=== PATIENT | female | born 1970 | race Caucasian/White ===

== ENCOUNTER 2017-01-04 16:00 | Inpatient (IN) | payer OTHER ==
[2017-01-04] MEDS ORDERED: Pantoprazole IV* 40 MG IV ONE (17:39)
[2017-01-04] MEDS ORDERED: Ondansetron INJ* 2 MG/ML VIAL IV ONE (17:39)
[2017-01-04] MEDS ORDERED: NS 0.9% 1000 ML* 2,000 ML IV ONE (17:40)
[2017-01-04] MEDS ORDERED: Morphine INJ* 4 MG/ML 1 ML CARPUJECT IV ONE ×2 (17:40→19:02)
[2017-01-04 17:56] LABS: Hematocrit 43 % (35-47); Hemoglobin 14.4 g/dl (12.0-16.0); Mean Corpuscular HGB Conc 34 g/dl (31-36); Mean Corpuscular Hemoglobin 31 pg (27-31); Mean Corpuscular Volume 93 fL (80-97); Mean Platelet Volume 7 um3 (7.4-10.4); Red Blood Count 4.57 10^6/ul (4.0-5.4); Red Cell Distribution Width 13 % (10.5-15); White Blood Count 14.3 10^3/ul (3.5-10.8)
[2017-01-04 18:09] LABS: Albumin 4.3 g/dL (3.2-5.2); C Reactive Protein 1.29 mg/L (< 5.00); Calcium 9.5 mg/dL (8.6-10.3); EGFR African American 108.7 (>60); EGFR Non-African American 84.5 (>60); Globulin 3.4 g/dL (2-4); Potassium 3.6 mmol/L (3.5-5.0); Total Bilirubin 0.4 mg/dL (0.2-1.0); Total Protein 7.7 g/dL (6.4-8.9)
[2017-01-04 19:21] LABS: Urine Bilirubin Negative (Negative); Urine Glucose Negative (Negative); Urine Nitrite Negative (Negative)
[2017-01-04] MEDS ORDERED: Iohexol 300* (CONTRAST) 10 ML SDV IV ONE (19:21)
--- NOTE | 2017-01-04 20:35 | RAD ---
CLINICAL HISTORY: Epigastric pain, left lower quadrant pain COMPARISON: None TECHNIQUE: Multiple contiguous axial CT scans were obtained of the abdomen and pelvis after the administration of intravenous contrast. Coronal and sagittal multiplanar reformations are submitted for review. Oral contrast was administered. Delayed images were obtained through the abdomen FINDINGS: Evaluation is somewhat limited by metallic streak artifact from spinal hardware. LUNG BASES: There is a large hiatal hernia with impression upon the left lung base LIVER: The liver is normal in shape, size, contour, and attenuation. BILE DUCTS: There is no intrahepatic or extrahepatic biliary dilatation. GALLBLADDER: The gallbladder is normal, without pericholecystic inflammatory change. PANCREAS: The pancreas is normal, without mass or ductal dilatation. SPLEEN: Normal in size and appearance. UPPER GI TRACT: Evaluation of the gastrointestinal tract is limited by incomplete gastric distention. There is a large para esophageal hiatal hernia. SMALL BOWEL AND MESENTERY: There is diffuse edema of the small bowel mesentery. There is mild distention of the small bowel. There is transition to decompressed small bowel within the right hemiabdomen. COLON: There are multiple diverticula of the sigmoid colon. There is no pericolonic inflammatory change. ADRENALS: Normal bilaterally. KIDNEYS: The kidneys are normal in shape, size, contour, and axis. There is no hydronephrosis or nephrolithiasis. BLADDER: The bladder is smooth in contour. PELVIC ORGANS: The uterus and adnexa are grossly normal for technique. AORTA: The aorta is normal. IVC: Unremarkable LYMPH NODES: There is no lymphadenopathy by size criteria. ABDOMINAL WALL: There is no evidence for abdominal wall hernia. BONES AND SOFT TISSUES: The patient is status post spinal stabilization surgery. OTHER: There is a small amount of ascites. IMPRESSION: 1. THERE IS DIFFUSE EDEMA OF THE SMALL BOWEL MESENTERY. THERE IS MILD DISTENTION OF THE SMALL BOWEL. THERE IS A TRANSITION TO RELATIVELY DECOMPRESSED SMALL BOWEL WITHIN THE RIGHT HEMIABDOMEN. THIS MAY INDICATE EARLY OR PARTIAL OBSTRUCTION. RECOMMEND ATTENTION ON FOLLOW-UP IMAGING. 2. LARGE PARAESOPHAGEAL HIATAL HERNIA. 3. SMALL AMOUNT OF ASCITES. 4. DIVERTICULOSIS
--- NOTE | 2017-01-04 22:47 | ED ---
Sacha Thompson Adam, scribed for Rickie Arthur MD on 01/04/17 at 1742 . Abdominal Pain/Female - HPI Summary HPI Summary: Pt is a 46 year old female presenting with abdominal pain. She states that the pain set on suddenly at 13:00, shortly after she ate lunch. Her lunch consisted of egg salad, serge, and green pepper. She also ate breakfast this morning. The pain is localized around the epigastrium and the LLQ. It does not radiate to her back or anywhere else. The pain has been constant but it fluctuates in waves of severity and has been generally getting worse since 13:00. She states that she called her PCP at 14:00 and made an appt for tomorrow but then decided to come to the ED because she could not tolerate the pain anymore. She also c/o nausea and belching but has been unable to vomit. She feels hot as well. Her last BM was this morning. Pt has taken ibuprofen and Pepto-Bismol today. Surgical Hx of and hernia repair. She denies any Hx of ulcers or cholecystectomy. - History of Current Complaint Chief Complaint: EDAbdPain Stated Complaint: ABD PAIN,NAUSEA Time Seen by Provider: 01/04/17 17:32 Hx Obtained From: Patient Onset/Duration: Sudden Onset, Lasting Hours, Still Present Timing: Constant - Fluctuating in waves of severity Severity Initially: Moderate Severity Currently: Moderate Pain Intensity: 10 Pain Scale Used: 0-10 Numeric Location: Diffuse, Discrete At: LLQ, Epigastric Radiates: No Aggravating Factor(s): Nothing Alleviating Factor(s): Nothing Associated Signs and Symptoms: Positive: Nausea Allergies/Adverse Reactions: Allergies Allergy/AdvReac Type Severity Reaction Status Date / Time No Known Allergies Allergy Verified 03/18/13 08:28 PMH/Surg Hx/FS Hx/Imm Hx Endocrine/Hematology History: Reports: Hx Thyroid Disease - HYPOTHYROID, Hx Anemia - IRON EVERY OTHER DAY Musculoskeletal History: Reports: Hx Arthritis - KNEES AND RIGHT BID TOE, Other Musculoskeletal History - CONGENTIAL RIGHT HIP REPAIR AT 2 YEARS OF AGE Sensory History: Denies: Hx Contacts or Glasses, Hx Hearing Aid Opthamlomology History: Denies: Hx Contacts or Glasses Neurological History: Reports: Hx Migraine - Surgical History Surgery Procedure, Year, and Place: 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 SCOLIOSIS-1981- [facility] [place]. [id number]-[facility] [place]. 1999-HERNIA REPAIR. 2011-MELANOMA REMOVED- [facility]. 1990-D&C- WITH TRANSFUSION- [place], [place] Hx Anesthesia Reactions: No Infectious Disease History: No Infectious Disease History: Denies: Traveled Outside the [place] in Last 30 Days - Family History Known Family History: Positive: Other - No Hx of breast CA - Social History Occupation: Employed Full-time Lives: With Family - Alcohol Use: None Hx Substance Use: No Substance Use Type: Reports: None Review of Systems Positive: Other - Feeling hot Positive: Abdominal Pain, Nausea. Negative: Vomiting All Other Systems Reviewed And Are Negative: Yes Physical Exam - Summary Physical Exam Summary: The patient is uncomfortable. The skin is pale. Good skin turgor. HEENT: The head is normocephalic and atraumatic. The pupils are equal and reactive. The conjunctivae are clear and without drainage. Nares are patent and without drainage. Mouth reveals dry mucous membranes and the throat is without erythema and exudate. The external ears are intact. The ear canals are patent and without drainage. The tympanic membranes are intact. Neck is supple with full range of motion and non-tender. There are no carotid bruits. There is no neck vein distension. Respiratory: Chest is non-tender. Lungs are clear to auscultation and breath sounds are symmetrical and equal. Cardiovascular: Heart is regular rate and rhythm. There is no murmur or rub auscultated. There is no peripheral edema and pulses are symmetrical and equal. Abdomen: Tenderness in the epigastrium and LLQ. No CVA tenderness. Musculoskeletal: There is no back pain noted. Extremities are non-tender with full range of motion. There is good capillary refill. There is no peripheral edema or calf tenderness elicited. Neurological: Patient is alert and oriented to person, place and time. The patient has symmetrical motor strength in all four extremities. Cranial nerves are grossly intact. Deep tendon reflexes are symmetrical and equal in all four extremities. Psychiatric: The patient has an appropriate affect and does not exhibit any anxiety or depression. Triage Information Reviewed: Yes Vital Signs On Initial Exam: Initial Vitals Temp Pulse Resp BP Pulse Ox 97.2 F 87 24 132/104 98 01/04/17 16:34 01/04/17 16:34 01/04/17 16:34 01/04/17 16:34 01/04/17 16:34 Vital Signs Reviewed: Yes Diagnostics - Vital Signs Vital Signs Temp Pulse Resp BP Pulse Ox 01/04/17 17:13 99.5 F 105 32 119/88 100 01/04/17 16:34 97.2 F 87 24 132/104 98 - Laboratory Lab Results: Lab Results 01/04/17 01/04/17 01/04/17 Range/Units 17:30 17:30 17:30 WBC 14.3 H (3.5-10.8) 10^3/ul RBC 4.57 (4.0-5.4) 10^6/ul Hgb 14.4 (12.0-16.0) g/dl Hct 43 (35-47) % MCV 93 (80-97) fL MCH 31 (27-31) pg MCHC 34 (31-36) g/dl RDW 13 (10.5-15) % Plt Count 379 (150-450) 10^3/ul MPV 7 L (7.4-10.4) um3 Neut % (Auto) 84.1 H (38-83) % Lymph % (Auto) 11.1 L (25-47) % [place] % (Auto) 3.9 (1-9) % Eos % (Auto) 0.4 (0-6) % Baso % (Auto) 0.5 (0-2) % Absolute Neuts (auto) 12.0 H (1.5-7.7) 10^3/ul Absolute Lymphs (auto) 1.6 (1.0-4.8) 10^3/ul Absolute Monos (auto) 0.6 (0-0.8) 10^3/ul Absolute Eos (auto) 0.1 (0-0.6) 10^3/ul Absolute Basos (auto) 0.1 (0-0.2) 10^3/ul Absolute Nucleated RBC 0 10^3/ul Nucleated RBC % 0 Sodium 132 L (133-145) mmol/L Potassium 3.6 (3.5-5.0) mmol/L Chloride 101 (101-111) mmol/L Carbon Dioxide 16 L (22-32) mmol/L Anion Gap 15 H (2-11) mmol/L BUN 20 (6-24) mg/dL Creatinine 0.74 (0.51-0.95) mg/dL Est GFR ( Amer) 108.7 (>60) Est GFR (Non-Af Amer) 84.5 (>60) BUN/Creatinine Ratio 27.0 H (8-20) Glucose 143 H (70-100) mg/dL Lactic Acid 2.7 H* (0.5-2.0) mmol/L Calcium 9.5 (8.6-10.3) mg/dL Total Bilirubin 0.40 (0.2-1.0) mg/dL AST 20 (13-39) U/L ALT 21 (7-52) U/L Alkaline Phosphatase 40 (34-104) U/L C-Reactive Protein 1.29 (< 5.00) mg/L Total Protein 7.7 (6.4-8.9) g/dL Albumin 4.3 (3.2-5.2) g/dL Globulin 3.4 (2-4) g/dL Albumin/Globulin Ratio 1.3 (1-3) Amylase 27 L (29-103) U/L Lipase 18 (11.0-82.0) U/L Urine Color Urine Appearance Urine pH (5-9) Ur Specific Strang (1.010-1.030) Urine Protein (Negative) Urine Ketones (Negative) Urine Blood (Negative) Urine Nitrate (Negative) Urine Bilirubin (Negative) Urine Urobilinogen (Negative) Ur Leukocyte Esterase (Negative) Urine Glucose (Negative) Urine Ascorbic Acid (Negative) 01/04/17 Range/Units 19:07 WBC (3.5-10.8) 10^3/ul RBC (4.0-5.4) 10^6/ul Hgb (12.0-16.0) g/dl Hct (35-47) % MCV (80-97) fL MCH (27-31) pg MCHC (31-36) g/dl RDW (10.5-15) % Plt Count (150-450) 10^3/ul MPV (7.4-10.4) um3 Neut % (Auto) (38-83) % Lymph % (Auto) (25-47) % [place] % (Auto) (1-9) % Eos % (Auto) (0-6) % Baso % (Auto) (0-2) % Absolute Neuts (auto) (1.5-7.7) 10^3/ul Absolute Lymphs (auto) (1.0-4.8) 10^3/ul Absolute Monos (auto) (0-0.8) 10^3/ul Absolute Eos (auto) (0-0.6) 10^3/ul Absolute Basos (auto) (0-0.2) 10^3/ul Absolute Nucleated RBC 10^3/ul Nucleated RBC % Sodium (133-145) mmol/L Potassium (3.5-5.0) mmol/L Chloride (101-111) mmol/L Carbon Dioxide (22-32) mmol/L Anion Gap (2-11) mmol/L BUN (6-24) mg/dL Creatinine (0.51-0.95) mg/dL Est GFR ( Amer) (>60) Est GFR (Non-Af Amer) (>60) BUN/Creatinine Ratio (8-20) Glucose (70-100) mg/dL Lactic Acid (0.5-2.0) mmol/L Calcium (8.6-10.3) mg/dL Total Bilirubin (0.2-1.0) mg/dL AST (13-39) U/L ALT (7-52) U/L Alkaline Phosphatase (34-104) U/L C-Reactive Protein (< 5.00) mg/L Total Protein (6.4-8.9) g/dL Albumin (3.2-5.2) g/dL Globulin (2-4) g/dL Albumin/Globulin Ratio (1-3) Amylase (29-103) U/L Lipase (11.0-82.0) U/L Urine Color Yellow Urine Appearance Cloudy Urine pH 5.0 (5-9) Ur Specific Strang 1.021 (1.010-1.030) Urine Protein Negative (Negative) Urine Ketones 2+ H (Negative) Urine Blood Negative (Negative) Urine Nitrate Negative (Negative) Urine Bilirubin Negative (Negative) Urine Urobilinogen Negative (Negative) Ur Leukocyte Esterase Negative (Negative) Urine Glucose Negative (Negative) Urine Ascorbic Acid * H (Negative) Result Diagrams: 01/04/17 17:30 01/04/17 17:30 Lab Statement: Any lab studies that have been ordered have been reviewed, and results considered in the medical decision making process. - CT A/P CT Interpretation Completed By: Radiologist - IMPRESSION: 1. THERE IS DIFFUSE EDEMA OF THE SMALL BOWEL MESENTERY. THERE IS MILD DISTENTION OF THE SMALL BOWEL. THERE IS A TRANSITION TO RELATIVELY DECOMPRESSED SMALL BOWEL WITHIN THE RIGHT HEMIABDOMEN. THIS MAY INDICATE EARLY OR PARTIAL OBSTRUCTION. RECOMMEND ATTENTION ON FOLLOW-UP IMAGING. 2. LARGE PARAESOPHAGEAL HIATAL HERNIA. 3. SMALL AMOUNT OF ASCITES. 4. DIVERTICULOSIS - Additional Comments Diagnostic Additional Comments: Lactic Acid - 2.7 Re-Evaluation - Re-Evaluation First Eval Re-Evaluation Time: 18:55 - Patient c/o more pain. Change: Worse Abdominal Pain Fem Course/Dx - Course Course Of Treatment: case discussed with Dr. Phipps. he reviewed the CT and will admit the patient. - Diagnoses Differential Diagnosis: Positive: Bowel Obstruction, Diverticulitis, Gall Bladder Disease, Pancreatitis, Other - hiatal hernia, perforated viscus Provider Diagnoses: Small bowel obstruction, Large hiatal hernia Discharge - Discharge Plan Condition: Stable Disposition: ADMITTED TO [facility] The documentation as recorded by the Sacha brower Adam accurately reflects the service I personally performed and the decisions made by , Rickie Arthur MD.
[2017-01-04] MEDS: HYDROmorphone INJ* 1 MG/ML CARPUJECT SYRINGE IV PRN (23:03)
[2017-01-05] MEDS: HYDROmorphone INJ* 1 MG/ML CARPUJECT SYRINGE IV PRN ×6 (01:54→20:43)
[2017-01-05] MEDS: Ondansetron INJ* 2 MG/ML VIAL IV PRN ×2 (05:18→20:42)
[2017-01-05 07:04] LABS: Hematocrit 41 % (35-47); Hemoglobin 13.8 g/dl (12.0-16.0); Mean Corpuscular HGB Conc 34 g/dl (31-36); Mean Corpuscular Hemoglobin 32 pg (27-31); Mean Corpuscular Volume 94 fL (80-97); Mean Platelet Volume 7 um3 (7.4-10.4); Red Blood Count 4.32 10^6/ul (4.0-5.4); Red Cell Distribution Width 13 % (10.5-15); White Blood Count 10.1 10^3/ul (3.5-10.8)
[2017-01-05 07:30] LABS: Albumin 3.8 g/dL (3.2-5.2); BUN/Creatinine Ratio 15.9 (8-20); C Reactive Protein 5.33 mg/L (< 5.00); Calcium 8.9 mg/dL (8.6-10.3); EGFR African American 130.8 (>60); EGFR Non-African American 101.7 (>60); Globulin 3.1 g/dL (2-4); Potassium 4.2 mmol/L (3.5-5.0); Total Bilirubin 0.5 mg/dL (0.2-1.0); Total Protein 6.9 g/dL (6.4-8.9)
--- NOTE | 2017-01-05 08:17 | RAD ---
Indication: Small bowel obstruction Flat and upright views of the abdomen demonstrates dilated stomach. Moderately dilated loops of small bowel are noted in the left upper quadrant. IMPRESSION: Persistent contrast is noted in a dilated stomach with moderately dilated loops of small bowel.
--- NOTE | 2017-01-05 13:23 | HP ---
CC: Dr. Phipps at [facility]; Lane Rios MD ADMISSION HISTORY AND PHYSICAL: DATE OF ADMISSION: 01/05/17 This patient is seen on the Short-Stay Surgical Unit at [address] DATE OF SERVICE: 01/05/17. TIME OF SERVICE: The patient was seen at 9 am today. ATTENDING SURGEON: Hernandez Phipps MD (dictated by Fariha Guzman NP) CHIEF COMPLAINT: Worsening abdominal pain. HISTORY OF PRESENT ILLNESS: The patient is a 46-year-old female who presented to the emergency room during the night; she states that at 1 p.m. yesterday, January 04, she had the onset of crampy ab dominal pain associated with nausea and lightheadedness. The patient was located between her ribcag e and umbilicus to the left of the midline. She states that she vomited after she drank contrast fo r the CAT scan of the abdomen and pelvis. Prior to this episode of abdominal pain, she had been fee ling generally well, although she states that about 2 weeks ago, she had similar pain, less intense, and it resolved very quickly. She has had a normal appetite prior to this; her last bowel movement was yesterday, January 04, and she described that as normal and did not notice any blood or mucus . She states that she does experience chronic constipation and use of fiber supplements daily and i t is typical for her to have a bowel movement twice a week. She denies any dysuria. She states emil t over the past 2 years with diet and exercise, she has intentionally lost about 34 pounds. In the emergency room, CAT scan of the abdomen and pelvis revealed mild distention of the small bowel with a transition to relatively decompressed area in the right hemiabdomen suggestive of early or partial small bowel obstruction; a large paraesophageal hiatal hernia was noted and a small amount of ascit es. Abdominal x-ray done this morning revealed dilated stomach and moderately dilated loops of smal l bowel. White blood cell count that was initially 14.3, this morning is 10.1. PAST MEDICAL HISTORY: Scoliosis in childhood; uterine fibroids; GERD, which has resolved with weigh t loss; recurrent bronchitis; and one episode of pneumonia. She is followed for primary care by Dr. Rios. PAST SURGICAL HISTORY: section in 1998; incisional hernia repair at the [facility] [place] [address] Moon; laparoscopic hysterectomy by Dr. Gonzalez approximately 5 years ago for uter ine fibroids; D and C many years ago; and surgery for scoliosis in childhood. OB HISTORY: 3, para 2, miscarriage 1. MEDICATIONS: 1. Levothyroxine 150 mcg p.o. daily. 2. Vitamin D3 supplements daily. ALLERGIES: No known drug allergies. No latex or food allergies. FAMILY HISTORY: Negative for gastrointestinal conditions. Negative for anesthesia complications. Negative for clotting disorders and negative for bleeding tendencies. Her parents are living. She states that both of them are smokers. SOCIAL HISTORY: She is and her is at the bedside; she has 2 children, ages 23 and 1 7; she is employed at the [employer]; she has never been a smoker, rarely drinks alcohol , and denies the use of other substances. REVIEW OF SYSTEMS: She is generally healthy; she has lost 34 pounds intentionally over the past 2 y ears with diet and exercise; she denies any cardiac conditions or complaints, she denies any history of deep vein thrombosis or pulmonary embolism; she denies any current upper respiratory complaints, but has a history of bronchitis and pneumonia; she states that before she lost weight, she had freq uent acid reflux, but none currently; she denies any history of stomach ulcers, irritable bowel synd nicole, or colitis; she denies any dysuria or history of kidney stones; she denies any previous anesth esia complications; she states that she received a blood transfusion when she had a miscarriage in ; she denies any bleeding tendencies. She denies any neurologic conditions or complaints and had surgery for scoliosis at age 11. PHYSICAL EXAMINATION GENERAL SURVEY: The patient is a 46-year-old female, well-developed, well- nourished, complaining o f abdominal pain, but in no acute distress. VITAL SIGNS: Height 4 feet 9 inches, weight 107 pounds, body mass index 23.2, temperature 98.5, blo od pressure 117/71, pulse 66 and regular, respiratory rate 16, and O2 saturation 98% on room air. HEENT: Benign. Anicteric sclerae. NECK: Supple. No cervical lymphadenopathy. BACK: No CVA tenderness. LUNGS: Breath sounds bilaterally clear and equal. HEART: Regular rate and rhythm. No murmurs, rubs, or gallops appreciated. ABDOMEN: Hyperactive bowel sounds with some rushes and tinkling; soft and nondistended; tender in t he supraumbilical and epigastric area primarily to the left of the midline. Some left upper quadran t and lower quadrant tenderness as well. No guarding; mild rebound tenderness. The patient had rec eived Dilaudid 1 hour prior to my exam. No obvious masses or organomegaly. A well-healed Pfannen[facility] incision. No obvious hernia. PELVIC: Exam is deferred. RECTAL: Exam is deferred. EXTREMITIES: Warm without edema or skin ulceration. NEUROLOGIC: Alert and oriented x3. SKIN: Warm, dry, intact, and anicteric. LABORATORY DATA: Electrolytes within normal limits. Lactic acid last evening was high at 2.7 and on repeat was 0.7. LFTs within normal limits. C-reactive protein elevated at 5.33. White blood ce ll count 10.1. No left shift. IMPRESSION: Small bowel obstruction. PLAN: N.P.O.; IV fluids; pain management; review of labs and imaging with Dr. Phipps and further planning by Dr[place] [id number]/[facility] #: [id number]
--- NOTE | 2017-01-05 16:10 | RAD ---
HISTORY: NG tube position COMPARISONS: CT dated January 04, 2017 VIEWS:1: Single frontal portable view of the chest at 3:51 PM FINDINGS: LINES AND TUBES: A gastric tube is noted with the tip in the left upper quadrant in a prepyloric position. CARDIOMEDIASTINAL SILHOUETTE: The cardiomediastinal silhouette is normal for portable technique. PLEURA: The costophrenic angles are sharp. No pleural abnormalities are noted. LUNG PARENCHYMA: The lungs are clear. ABDOMEN: Again noted is a large hiatal hernia. BONES AND SOFT TISSUES: The patient is status post spinal stabilization surgery IMPRESSION: 1. LINES AND TUBES ABOVE. 2. LARGE HIATAL HERNIA
[2017-01-06] MEDS: HYDROmorphone INJ* 1 MG/ML CARPUJECT SYRINGE IV PRN ×4 (01:32→15:02)
[2017-01-06 07:34] LABS: Hematocrit 40 % (35-47); Hemoglobin 13.2 g/dl (12.0-16.0); Mean Corpuscular HGB Conc 33 g/dl (31-36); Mean Corpuscular Hemoglobin 31 pg (27-31); Mean Corpuscular Volume 94 fL (80-97); Mean Platelet Volume 7 um3 (7.4-10.4); Red Blood Count 4.23 10^6/ul (4.0-5.4); Red Cell Distribution Width 13 % (10.5-15); White Blood Count 11.3 10^3/ul (3.5-10.8)
[2017-01-06 07:47] LABS: BUN/Creatinine Ratio 16.7 (8-20); Calcium 8.4 mg/dL (8.6-10.3); EGFR Non-African American 96.4 (>60); Magnesium 1.7 mg/dL (1.9-2.7); Potassium 3.9 mmol/L (3.5-5.0)
[2017-01-06] MEDS ORDERED: Magnesium Sulfate 1 GM IV* 1 GM/100 ML BAG IV ONE (07:59)
--- NOTE | 2017-01-06 07:59 | PN ---
Progress Note - Progress Note SOAP: Subjective: Pt seen and examined. COntinued L sided abdo pain. Hiccups, but no nausea since NGT. No flatus. BM yesterday am Objective: af vss decre BS b/l abdo: soft/ with exception of LUQ. tender on the L w/o rebound. no calf tenderness CT and xrays reviewed Assessment: symptomatic paraesophageal hernia Plan: Pt needs hernia repair. It is preferred on this admission. Pain control serial abdo exams OR early next week.
[2017-01-06] MEDS: Heparin VIAL(*) 5000 UNITS/ML VIAL (FIVE THOUSAND) SUBCUT SCH ×2 (14:58→21:43)
[2017-01-06] MEDS ORDERED: Phenol 1.4% Spray* 177 ML BTL MT PRN (18:55)
[2017-01-07] MEDS: HYDROmorphone INJ* 1 MG/ML CARPUJECT SYRINGE IV PRN (01:40)
[2017-01-07] MEDS: Levothyroxine INJ* 100 MCG/5 ML VIAL IV SCH (05:43)
[2017-01-07] MEDS: Heparin VIAL(*) 5000 UNITS/ML VIAL (FIVE THOUSAND) SUBCUT SCH ×3 (05:43→21:26)
--- NOTE | 2017-01-07 09:53 | PN ---
Progress Note - Progress Note SOAP: Subjective: Pain meds last at 2 am. Passed flatus and notes NGT not draining. Objective: Vital Signs Temp 98.1 F 01/07/17 08:04 Pulse 67 01/07/17 08:04 Resp 20 01/07/17 08:04 BP 117/80 01/07/17 08:04 Pulse Ox 96 01/07/17 08:04 Intake & Output 01/06/17 01/07/17 01/07/17 18:59 06:59 18:59 Intake Total 2043 2004 Output Total 525 1900 0 Balance 1519 105 0 Intake: IV Fluids 982 1945 LR 982 1945 IVPB 1062 ABX - FLAGYL 105 LR 957 Oral 0 60 Output: NG Tube Drainage Amount 25 100 Urine 500 1800 0 Other: # Bowel Movements 0 NAD Abd: +BS, soft, ND, mildly tender lower to mid abd,L>R. Assessment: Suspect mechanical SBO resolving. PEH. No urgent or emergent need for OR. Plan: NGT d/c'd. Keep NPO. Pt and asking about surgery plan. I told them I would d/w Dr. Butterfield.
[2017-01-07] MEDS: D5W 1/2 NS KCl 20 Meq 1000 ML* 1,000 ML IV SCH (10:57)
[2017-01-08] MEDS: D5W 1/2 NS KCl 20 Meq 1000 ML* 1,000 ML IV SCH ×2 (00:11→13:25)
[2017-01-08] MEDS: Heparin VIAL(*) 5000 UNITS/ML VIAL (FIVE THOUSAND) SUBCUT SCH ×3 (05:46→21:26)
[2017-01-08] MEDS: Levothyroxine INJ* 100 MCG/5 ML VIAL IV SCH (05:46)
--- NOTE | 2017-01-08 10:30 | RAD ---
HISTORY: Follow-up small bowel obstruction COMPARISONS: January 05, 2017 VIEWS: Frontal views of the abdomen. FINDINGS: BOWEL: There is a nonspecific bowel gas pattern, with nondilated small bowel gas noted. Oral contrast is noted within the colon. Again noted is a hiatal hernia. CALCULI: There are no abnormal calculi. BONES AND SOFT TISSUES: The patient is status post spinal stabilization surgery. The right iliac crest is dysplastic. 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 There is no subphrenic gas. IMPRESSION: NONSPECIFIC BOWEL GAS PATTERN. NO SUBPHRENIC GAS.
--- NOTE | 2017-01-08 16:57 | PN ---
Progress Note - Progress Note Note: Surgery Progress: (late entry; patient seen w/ Dr. Phipps at ~ 0830) S: Feels better. Less pain. No N/V. Passing flatus; no BM. O: Vital Signs - 8 hr 01/08/17 01/08/17 12:35 15:43 Temperature 98.1 F 98.4 F Pulse Rate 56 55 Respiratory 14 Rate Blood Pressure 129/74 124/78 (mmHg) O2 Sat by Pulse 99 99 Oximetry Intake and Output Last 24 Hours 01/06/17 01/07/17 01/08/17 01/09/17 06:59 06:59 06:59 06:59 Intake Total 1960 4049 1818 1349 Output Total 2150 2425 2700 2450 Balance -190 1624 -882 -1101 Intake: IV Fluids 1959 2927 612 1049 D5W 1/2 NS 20 meq KCL 612 1049 LR 2927 IVPB 1062 1156 ABX - FLAGYL 105 D5W 1/2 NS 20 meq KCL 1156 LR 957 Oral 0 60 50 300 Output: NG Tube Drainage Amount 750 125 Urine 1200 2300 2700 2450 Emesis 200 Other: # Bowel Movements 0 1 Estimated Stool Amount Medium Abd: (by Dr. Phipps) +BS; soft; mild LLQ tenderness; remainder non-tender AXR: contrast in colon A/P: SBO, improving. Will start clears. Poss d/c home 01/09 if laith.
[2017-01-09] MEDS: D5W 1/2 NS KCl 20 Meq 1000 ML* 1,000 ML IV SCH (02:06)
[2017-01-09] MEDS: Heparin VIAL(*) 5000 UNITS/ML VIAL (FIVE THOUSAND) SUBCUT SCH (05:42)
[2017-01-09] MEDS: Levothyroxine INJ* 100 MCG/5 ML VIAL IV SCH (05:43)
[2017-01-09 11:48] VITALS: BP 100/65
--- NOTE | 2017-01-10 21:54 | DS ---
CC: Dr. Lane Rios; Dr. Chris Leigh DISCHARGE SUMMARY: DATE OF ADMISSION: 01/05/17 DATE OF DISCHARGE: 01/09/17 ATTENDING SURGEON: Dr. Hernandez Phipps. HOSPITAL COURSE: Please refer to admission history and physical for admission details. Briefly, e patient came to the ED on 01/04/17 with symptoms of abdominal pain and vomiting. A CT scan done a t that time showed evidence of a small bowel obstruction and also a large periesophageal hiatal willard ia. The patient was admitted to our service and was treated with bowel rest, IV hydration, and NG t ube decompression. She was given medications for pain and nausea control. She gradually improved w ith NG tube removed on 01/07/17 after passage of flatus. She continued to improve with advancement of diet from clear liquids on 01/08/17 to full liquids on the morning of 01/09/17. Plain film of e abdomen on 01/08/17 did show progression of the prior CT contrast into the colon. The patient had also had bowel movement and was essentially pain free the morning of discharge. She was seen on e morning of discharge by Dr. Phipps. Exam on the morning of discharge was notable for the patient being afebrile, pulse rate 51 to 60 and other vital signs stable. Her physical exam was done by Dr. Phipps. IMPRESSION: 1. Small bowel obstruction, resolved. 2. Large periesophageal hiatal hernia, unlikely to be directly related to her SBO. Dr. Phipps did d iscuss with her the indications for further workup i.e., EGD and possible surgical repair. PLAN: Discharge home today. DIET: Instructions to advance slowly over the next couple of days and to contact our office if any recurrent symptoms of abdominal pain, nausea, vomiting, etc. She will resume her usual home medicat ions. A referral will also be set up with Dr. Leigh for EGD and surgical followup thereafter as in dicated. KATHIE REYNAGA [id number]/[facility] #: [id number]
== END 2017-01-09 12:10 | disposition home or self-care (01) | DRG 389 ==
LOC: ED 16:00 → SSU 21:12 → OBSVTOIN 01-06 10:00
PROVIDERS: ADMIT Surgery; ATTEND Surgery
DX: K56.60 Unspecified intestinal obstruction (principal); R18.8 Other ascites; E03.9 Hypothyroidism, unspecified; K44.9 Diaphragmatic hernia without obstruction or gangrene; D64.9 Anemia, unspecified; Z79.899 Other long term (current) drug therapy
CPT/HCPCS: 36415; 71010; 74020; 74177; 80048; 80053; 81003; 82150; 83605; 83690; 83735; 85025; 86140; 93005; 96374; A9270-GY; G0378; J1170; J1644; J2270; J2405; J3475; Q9967

== ENCOUNTER 2017-02-13 07:43 | Observation (INO) | payer OTHER ==
--- NOTE | 2017-02-01 20:51 | HP ---
ADMISSION HISTORY AND PHYSICAL: DATE OF ADMISSION: 02/13/17 ATTENDING SURGEON: Dr. Robert Cota (KATHIE Aleman dictating). [facility] COMPLAINT: Paraesophageal hiatal hernia. HISTORY OF PRESENT ILLNESS: This is a 46-year-old female who was recently admitted on 01/05/17 for a partial small bowel obstruction. This did resolve with conservative treatment. However, upon workup including the CT scan of the abdomen, there was noted to be a large paraesophageal hiatal hernia. As her partial SBO improved, it was felt that the two are unrelated. She was discharged and sent for subsequent EGD, which was performed on 01/18/[address] Leigh. That study was normal in terms of mucosal changes. He did note that large portion of her stomach appeared to be above the diaphragm. She relates a past medical history of some reflux symptoms but particularly prior to 34 pounds of intentional weight loss over the past 2 years. She formally had used Tums p.r.n., but has not required any antacids in recent months. She does describes some shortness of breath with exertion but works out regularly and has good exercise capacity. She was seen in the office by Dr. Cota on . He has reviewed her history and workup. He discussed with her the indications for surgery, the risks, benefits, and alternatives and we have reviewed the expected perioperative course including dietary changes postoperatively. She would like to proceed as scheduled with laparoscopic repair of paraesophageal hiatal hernia. PAST MEDICAL HISTORY: Scoliosis (status post placement of flores surgically at age 12). She is treated for hypothyroidism. She does have some degree of chronic constipation, which is largely managed with daily fiber supplement. Recent episode of partial SBO with one prior episode 2 weeks previous, which was self-limited. She did undergo in 1998 and then subsequent incisional repair at the [facility]iel incision [place] [address] Moon. She believes mesh was used for that repair. She underwent laparoscopic subtotal supracervical hysterectomy in 2012 for uterine fibroids. She is status post D and C many years prior. She is also status post excision of a melanoma of the left thigh in 2011 (she follows regularly with Dr. Pollock.) CURRENT MEDICATIONS: 1. Levothyroxine 150 mcg once daily. 2. Vitamin D3 1000 International Units once daily. 3. Metamucil fiber supplement 1 teaspoon q.p.m. ALLERGIES: None known. FAMILY HISTORY: Negative for anesthesia problems, bleeding, or clotting disorders. SOCIAL HISTORY: The patient is . She has 1 children. She works in the [employer]. She has never been a smoker. Drinks alcohol rarely and denies use of other substances. REVIEW OF SYSTEMS: General: No recent constitutional symptoms or acute illnesses other than described in the HPI. She does report 34 pounds of intentional weight loss over the past 2 years, which has leveled off. She continues to workout on a regular basis for toning purposes. Cardiovascular: No hypertension, chest pain, or palpitations. No history of heart murmur. Respiratory: No history of asthma, chronic cough, or shortness of breath. See also above per HPI. She does have a somewhat remote past history of recurrent bronchitis and one episode of pneumonia, but no problems in recent years. GI: As above. No additions other than chronic constipation. She has never undergone colonoscopy. : No problems reported. BOTTLE FILLER: No current problems. She is up-to-date within past year for breast and pelvic examination as well as mammogram and Pap smear all reportedly normal. Endocrine: She is treated for hypothyroidism. There is no history of diabetes. Musculoskeletal: History of scoliosis surgery at age 12. No additional problems. Hematological/Oncological : She did receive a blood transfusion in the setting of a miscarriage in 1989. No other personal or family history of bleeding disorders. PHYSICAL EXAMINATION GENERAL: A well-nourished, slightly built, petite female, in no acute distress. VITAL SIGNS: Height 4 feet 9.5 inches, weight 100 pounds. Blood pressure 124/ 86, pulse 84, respirations 16. HEENT: Pupils equal and round, reactive. EOMs intact. No conjunctival pallor. Oropharynx: Teeth in good repair. No intraoral lesions. NECK: No lymphadenopathy, thyromegaly, or masses. LUNGS: Clear to auscultation. No wheezes. HEART: Regular rate and rhythm. No murmur noted. BREASTS: Not examined. ABDOMEN: Well-healed Pfannenstiel incision as well as laparoscopic incision sites. Abdomen is flat, soft, and nontender to palpation and without palpable masses or organomegaly. GENITALIA: Not done. RECTAL: Not done. BACK: Surgical scar. No spinous process or CVA tenderness. EXTREMITIES: No edema. NEUROLOGICAL: Grossly intact. SKIN: Warm and dry. No suspicious rashes or lesions noted. Full skin survey was not performed. IMPRESSION: Paraesophageal hiatal hernia. PLAN: Laparoscopic repair of paraesophageal hiatal hernia. KATHIE REYNAGA CC: Dr. Lane Rios; Dr. Chris Leigh * [id number]/[facility] #: [id number] [facility]
[~2017-02-13 07:43] MED LIST: Buffered Lidocaine 1% SYRIN* 3 ML/SYR SYRINGE INTRADERM ONE; Famotidine IV* 10 MG/ML 2 ML (20 mg) IV ONE; Morphine INJ* 2 MG/ML 1 ML SYRINGE IV PRN; PROCHLORPERAZINE INJ 5 MG/ML 2 ML VIAL IV PRN; Scopolamine 1.5 mg* PATCH TRANSDERM ONE; ceFOXitin 2 GM IVPREMIX* 2 GM/50 ML BAG ONE; fentaNYL* 50 MCG/ML 2 ML VIAL (100 MCG VIAL) IV PRN
[2017-02-13] MEDS ORDERED: fentaNYL* 50 MCG/ML 2 ML VIAL (100 MCG VIAL) ONE ×2 (07:44→14:06)
[2017-02-13] MEDS ORDERED: Morphine INJ* 10 MG/ML 1 ML SYRINGE ONE (07:44)
[2017-02-13] MEDS ORDERED: Atracurium* 10 MG/ML 10 ML VIAL ONE (07:44)
[2017-02-13] MEDS ORDERED: KETAMINE HCL* 50 MG/ML 10 ML VIAL ONE (07:45)
[2017-02-13] MEDS ORDERED: Midazolam* 1 MG/ML 5 ML VIAL (5 MG) ONE (07:45)
[2017-02-13] MEDS ORDERED: ceFAZolin 2 GM PREMIX(*) 2 GM/50 ML BAG IVPB ONE (07:48)
[2017-02-13] MEDS ORDERED: Scopolamine 1.5 mg* PATCH ONE (07:48)
[2017-02-13] MEDS ORDERED: Famotidine IV* 10 MG/ML 2 ML (20 mg) ONE (07:48)
[2017-02-13] MEDS ORDERED: Bupivacaine 0.5% W/EPI SDV* 30 ML VIAL ONE (09:23)
[2017-02-13] MEDS ORDERED: Ondansetron INJ* 2 MG/ML VIAL ONE (10:58)
[2017-02-13] MEDS ORDERED: EPHEDrine (Pressors)* 50 MG/ML VIAL ONE (10:58)
[2017-02-13] MEDS ORDERED: Propofol* 10 MG/ML 20 ML BTL IV PUSH ONE (10:58)
[2017-02-13] MEDS ORDERED: Neostigmine Methylsulfate* 2 MG/2 ML SYRINGE ONE ×2 (10:58→12:34)
[2017-02-13] MEDS ORDERED: Dexamethasone IV* 4 MG/ML 1 ML (4 MG) ONE (10:58)
[2017-02-13] MEDS ORDERED: Glycopyrrolate IV* 0.2 MG/ML 1 ML VIAL ONE ×2 (10:58→12:39)
[2017-02-13] MEDS ORDERED: Phenylephrine INJ* 10 MG/ML 1 ML VIAL (10 MG) ONE (10:58)
[2017-02-13] MEDS ORDERED: HYDROmorphone* 1 MG/ML 1 ML SYR IV SLOW PU PRN (12:49)
[2017-02-13] MEDS ORDERED: Ondansetron INJ* 2 MG/ML VIAL IV PRN (12:49)
[2017-02-13] MEDS ORDERED: diPHENhydraMINE IV* 25 MG in NS 0.9% 50 ML* 50 ML IVPB PRN (12:49)
[2017-02-13] MEDS ORDERED: HYDROcodone/ACET. 7.5/325 LIQ* 15 ML UDC PO PRN (12:49)
[2017-02-13] MEDS ORDERED: hydrALAZINE IV* 20 MG/ML VIAL ONE (14:32)
[2017-02-13] MEDS: HYDROcodone/ACET. 7.5/325 LIQ* 15 ML UDC PO PRN (17:09)
[2017-02-14] MEDS: HYDROcodone/ACET. 7.5/325 LIQ* 15 ML UDC PO PRN ×2 (01:48→06:56)
[2017-02-14] MEDS ORDERED: Levothyroxine TAB* 150 MCG TAB PO SCH (06:00)
[2017-02-14 07:54] VITALS: BP 147/79
--- NOTE | 2017-02-14 10:40 | OP ---
DATE OF OPERATION: 02/13/17 - ROOM #40 DATE OF : 70 SURGEON: Dr. Cota. WEB SITE DESIGNER: Dr. Butterfield. ANESTHESIOLOGIST: Hernandez Monge MD. ANESTHESIA: General endotracheal. PRE-OP DIAGNOSIS: Paraesophageal hernia. POST-OP DIAGNOSIS: Paraesophageal hernia. OPERATIVE PROCEDURE: Laparoscopic repair of paraesophageal hernia with López fundoplication. ESTIMATED BLOOD LOSS: Minimal. IV FLUIDS: Crystalloid. SPECIMEN: None. DRAINS: None. COMPLICATIONS: None. COUNTS: The instrument, needle, and sponge counts were correct. OPERATIVE FINDINGS: The patient had a large paraesophageal hernia with the distal one-half of the stomach herniated up to the medial into the chest. DESCRIPTION OF PROCEDURE: The patient was brought to the operating room and placed on the table supine. Sequential compression devices were placed on both lower extremities. General anesthesia was administered. Graham catheter was placed. The patient was positioned and padded appropriately. She received appropriate intravenous antibiotics and she was then prepped and draped in the usual sterile fashion. Time-out was performed. Local anesthetic was infiltrated into the skin and soft tissue prior to making each incision. Using an open technique, the peritoneal cavity was accessed through a transumbilical vertical incision. After accessing the peritoneal cavity, a 5-mm bladeless trocar was placed and the carbon dioxide was insufflated to a pressure of 15 mmHg. Under direct visualization, the trocar was placed in the left upper quadrant, 5-mm trocar placed in the right upper quadrant, 5-mm trocar placed in the left upper quadrant laterally, and a Todd liver retractor was placed percutaneously in the subxiphoid position and used to elevate the left lobe of the liver. Inspection revealed a large hiatal hernia. The fundus of the stomach was intraabdominal. The distal stomach up to the pylorus appeared to be up in the chest. Zcrn-[id number] technique was used to reduce the stomach using atraumatic graspers. The approach initiated at the left anthony of the diaphragm and using the LigaSure, the paraesophageal hernia sac was incised. The sac was able to be reduced again using digj-cduq-ftxm technique and dividing around the hiatus with the LigaSure until the full sac was completely reduced and the media-stinum was able to be entered. The pars flaccida was then opened on the right side and dissection proceeded along the right anthony of the diaphragm to further complete the dissection. Esophagus was identified and dissection proceeded along the posterior esophagus showed that a 0.25-inch Mohall drain could be placed around the esophagus and was subsequently secured to itself with a Polysorb Surgitie and this was able to be used to manipulate the esophagus for the remainder of the case. Utilizing the LigaSure and blunt dissection, a full 360-degree immobilization of the esophagus was performed with identification and preservation of the vagus nerves. During the dissection of the right side, there was an inadvertent entry to the pleural cavity, which was subsequently closed with endoscopic clip placement. The dissection proceeded in the posterior space in order to open this widely to well identify the left and right anthony of the diaphragm. After obtaining a 5-cm intraabdominal length of esophagus, a closure of the diaphragmatic hernia was performed using 0 Ti-Cron sutures with pledgets made of polyester Hemashield patch. A series of 6 sutures were placed in order to close the large defect. The closure was performed over a 50-Arabic Bougie due to the patient's short stature. After completing the closure of the diaphragm, López fundoplication was performed first by dividing the upper short gastric vessels and then a 360-degree wrap for the fundus around the gastroesophageal junction was performed, again over a 50-Arabic Bougie and the plication was performed with 0 Ti-Cron sutures using 3 sutures over the length of about 2 cm with the uppermost suture incorporating the esophageal wall. Lastly, the fundic wrap on the right side of the esophagus was sutured to the crura on the right with 0 Ti-Cron suture. After assuring hemostasis, the Todd liver retractor was removed. The Bougie was removed. The ports were all removed under direct visualization and carbon dioxide was released. The skin incisions were closed with 4-0 Polysorb in subcuticular fashion and DermaFlex with Steri-Strips were applied. The patient tolerated the procedure well. She was extubated and transferred to the recovery room in stable condition. CC: Lane Rios MD; Chris Leigh MD* [id number]/[facility] #: [id number] [facility]
--- NOTE | 2017-02-14 11:51 | PN ---
Progress Note - Progress Note Note: Surgery Progress: (patient seen w/ Dr. Cota ~0930.) S: some, mostly L shoulder, pain. Danica clears. Ambulating. Voiding well. O: Vital Signs - 8 hr 02/14/17 02/14/17 02/14/17 03:48 06:56 07:25 Temperature 97.9 F Pulse Rate 60 Respiratory 16 16 18 Rate Blood Pressure 147/79 (mmHg) O2 Sat by Pulse 100 Oximetry 02/14/17 02/14/17 08:00 08:37 Temperature Pulse Rate Respiratory 18 18 Rate Blood Pressure (mmHg) O2 Sat by Pulse 100 Oximetry Intake and Output Last 24 Hours 02/12/17 02/13/17 02/14/17 02/15/17 06:59 06:59 06:59 06:59 Intake Total 4280 360 Output Total 1800 800 Balance 2480 -440 Weight 102 lb 14.4 oz Intake: IV Fluids 2815 LR 2765 NS 50ML, Cefazolin 2G 50 Oral 1465 360 Output: Urine 1800 800 Other: Estimated Void Large # Bowel Movements 0 # Voids 2 PE: (done by Dr. Cota) Gen: appears well; NAD Heart: reg Lungs: clear Abd: +BS; lap incisions fine; no s/sx of infection; mild to mod incisional tenderness A/P: s/p lap repair paraesophageal hernia, doing well; home today; instructions reviewed. Office f/u as sched.
--- NOTE | 2017-02-15 03:12 | DS ---
DISCHARGE SUMMARY: DATE OF ADMISSION: 02/13/17 DATE OF DISCHARGE: 02/14/17 ATTENDING SURGEON: Dr. Robert Cota. HOSPITAL COURSE: Please refer to admission history and physical for admission details. The patient was taken to the operating room on 02/13/17 and underwent laparoscopic reduction and repair of a large paraesophageal hiatal hernia. Jossue fundoplication was done as part of that repair. See separate operative report. The patient has had an otherwise uneventful postoperative recovery with pain as expected, but controlled with oral medications as of the morning of discharge. She is breathing comfortably and tolerating clear liquids. PHYSICAL EXAMINATION: As of the morning of discharge (the patient examined by Dr. Cota), temperature 97.9, blood pressure 147/79, pulse 60, respirations 18 , room air saturation 100%. Heart: Regular rate and rhythm. Lungs: Clear to auscultation. Abdomen: Laparoscopic incision sites clean and dry under Steri- Strips. No evidence of bone infection. Abdomen soft with mild to moderate incisional tenderness only. DISCHARGE INSTRUCTIONS: Instructions regarding wound care, diet and activity were reviewed. She already has a prescription for hydrocodone/APAP liquid and an appointment for followup in our office in approximately 1 week. KATHIE REYNAGA CC: Dr. Lane Rios; Dr. Chris Leigh* [id number]/[facility] #: [id number] [facility]
[2017-02-16] MEDS ORDERED: Scopolomine PATCH Remove* 1 NOTE MISC PATCH OFF ONE (06:00)
== END 2017-02-14 10:40 | disposition home or self-care (01) ==
LOC: OR 07:43 → SSU 15:30
PROVIDERS: ADMIT Surgery; ATTEND Surgery
PROC: 0BUS4JZ (ICD-10-PCS; 2017-02-13)
PROC: 0BUR4JZ (ICD-10-PCS; 2017-02-13)
PROC: 0DV44ZZ Restriction of Esophagogastric Junction, Percutaneous Endoscopic Approach (ICD-10-PCS; principal; 2017-02-13 09:15)
DX: K44.9 Diaphragmatic hernia without obstruction or gangrene (principal); E03.9 Hypothyroidism, unspecified; Z79.899 Other long term (current) drug therapy
CPT/HCPCS: 96361; 96374; 96375; A9270-GY; C1776; G0378; J0360; J0690; J0694; J1100; J2250; J2270; J2405; J2704; J3010